=== PATIENT | male | born 1995 | race African-American/Black ===

== ENCOUNTER 2024-02-05 13:12 | Emergency (ER) | payer BC ==
[~2024-02-05] VITALS: Ht 182.9 cm; Wt 78.0 kg
[2024-02-05 13:15] VITALS: O2SAT 98
[2024-02-05] MEDS: ONDANSETRON HCL 4MG/2ML INJ IV STA (13:20)
[2024-02-05] MEDS: MORPHINE SULFATE 4 MG/ML INJ (FOR IV/IM USE) IV STA (13:20)
[2024-02-05] MEDS: SODIUM CHLORIDE 0.9% 1,000 ML IV ONE (13:30)
[2024-02-05 14:12] LABS: BASOPHILS % 0.9 % (0.0-2.0); EOSINOPHILS % 1.6 % (0.0-5.0); HEMATOCRIT. 51.3 % (42.0-52.0); HEMOGLOBIN. 16.7 g/dL (14.0-18.0); LYMPHOCYTES % 14.5 % (20.0-50.0); MEAN CORPUSCULAR HGB CONC 32.6 g/dL (31.0-37.0); MEAN CORPUSCULAR VOLUME 95.3 fL (80.0-94.0); MEAN PLATELET VOLUME 7.5 fl (7.4-10.4); MONOCYTES % 4.3 % (2.0-8.0); NEUTROPHILS % 78.7 % (40.0-76.0); PLATELET 205 x1000/uL (130-400); RED BLOOD CELL COUNT 5.38 mill/uL (4.7-6.1); RED CELL DISTRIBUTION WIDTH 13.7 % (11.6-14.6)
[2024-02-05 17:58] LABS: CHLORIDE 107 mEq/L (98-107); SODIUM 141 mEq/L (136-145)
[2024-02-05 17:59] LABS: CALCIUM 8.5 mg/dL (8.7-10.4); CARBON DIOXIDE 28 mEq/L (21-32)
[2024-02-05 18:04] LABS: CREATININE 1.3 mg/dL (0.6-1.3); GLUCOSE 84 mg/dL (70-105); TROPONIN I HIGH SENSITIVITY 7 ng/L (3.0-53); UREA NITROGEN BLOOD 6 mg/dL (9-23)
[2024-02-05 18:06] LABS: ALANINE AMINOTRANSFERASE 22 IU/L (10-49); ALBUMIN 3.8 g/dL (3.2-4.8); ASPARTATE AMINOTRANSFERASE 33 IU/L (<34); BILIRUBIN DIRECT 0.3 mg/dL (<=3.0); BILIRUBIN TOTAL 0.7 mg/dL (0.1-1.0); PROTEIN TOTAL 5.6 g/dL (6.0-8.3)
[2024-02-05 18:39] LABS: CHLORIDE 109 mEq/L (98-107); SODIUM 142 mEq/L (136-145)
[2024-02-05 18:40] LABS: CARBON DIOXIDE 24 mEq/L (21-32)
[2024-02-05 18:41] LABS: CALCIUM 8.3 mg/dL (8.7-10.4)
[2024-02-05 18:45] LABS: CREATININE 1.3 mg/dL (0.6-1.3); GLUCOSE 79 mg/dL (70-105)
[2024-02-05 18:46] LABS: UREA NITROGEN BLOOD 5 mg/dL (9-23)
[2024-02-05 18:47] LABS: ALANINE AMINOTRANSFERASE 23 IU/L (10-49); ASPARTATE AMINOTRANSFERASE 35 IU/L (<34)
[2024-02-05 18:48] LABS: BILIRUBIN TOTAL 0.6 mg/dL (0.1-1.0); PROTEIN TOTAL 5.7 g/dL (6.0-8.3)
[2024-02-05 20:57] VITALS: BP 124/64; PULSE 56; RESP 12; TEMP 97.8
== END 2024-02-05 20:59 | disposition home or self-care (01) ==
LOC: ER 14:04
DX: R10.84 Generalized abdominal pain (principal); R11.2 Nausea with vomiting, unspecified; K40.90 Unilateral inguinal hernia, without obstruction or gangrene, not specified as recurrent
CPT/HCPCS: 80076; 80053; 80048; 83690; 85025; 84484; 36415; 71045; 74176; 93005; 96361; 96374; 96375; 99285; J2405; J2270; J7030; Z7610 ×2